=== PATIENT | female | born 1930 | race Caucasian/White ===

== ENCOUNTER 2017-02-06 10:56 | Inpatient (IN) | payer OTHER, MEDICARE ==
[~2017-02-06] VITALS: Ht 147.3 cm; Wt 55.4 kg
[~2017-02-06 10:56] MED LIST: ARANESP60 MCG/0.3 IV; ASPIRIN325 MG PO; CALTRATE 600 +1 EAC1 PO; CALTRATE 600600 MG PO; FEROSUL325 MG PO; FIBER THERAPY0.52 GM PO; GEMFIBROZIL600 MG PO; GLUCOPHAGE500 MG PO; IRON325 MG PO; LISINOPRIL5 MG PO; LITE COAT ASPI325 M1 PO; LOPID600 MG PO; METFORMIN HCL500 MG PO; MOTRIN400 MG PO; PREDNISONE2.5 MG PO; PRILOSEC20 MG PO; VITAMIN D; VITAMIN D2000 INTUN PO; VITAMIN D31000 UNI2 PO
[2017-02-06 11:35] LABS: POINT-OF-CARE METER ID UU14174212
[2017-02-06 11:51] VITALS: BP 156/70
[2017-02-06 18:43] VITALS: BP 145/63
[2017-02-06 23:57] VITALS: BP 126/60
[2017-02-07 07:22] VITALS: BP 123/59
[2017-02-07 07:35] LABS: POINT-OF-CARE METER ID UU14188577
[2017-02-07] MEDS ORDERED: HYDROCODON-ACE1 EAC7 PO (09:04)
[2017-02-07 11:44] LABS: POINT-OF-CARE METER ID UU14188577
[2017-02-07 15:50] VITALS: BP 121/59
[2017-02-07 22:24] LABS: POINT-OF-CARE METER ID UU14188577
[2017-02-08 00:07] VITALS: BP 143/65
[2017-02-08 07:02] LABS: POINT-OF-CARE METER ID UU14188577
[2017-02-08 08:03] VITALS: BP 94/55
== END 2017-02-08 11:36 | disposition home or self-care (01) | DRG 520 ==
LOC: SDC 10:56 → 3EAST 14:07 → 2SOUTH 14:07 → 3EAST 18:18
PROVIDERS: Neurological Surgery
DX: M48.06 Spinal stenosis, lumbar region (principal); M54.16 Radiculopathy, lumbar region; I10 Essential (primary) hypertension; E78.5 Hyperlipidemia, unspecified; E11.9 Type 2 diabetes mellitus without complications; K21.9 Gastro-esophageal reflux disease without esophagitis; M19.90 Unspecified osteoarthritis, unspecified site; Z96.651 Presence of right artificial knee joint; Z86.74 Personal history of sudden cardiac arrest; Z79.82 Long term (current) use of aspirin; Z86.73 Personal history of transient ischemic attack (TIA), and cerebral infarction without residual deficits; Z88.5 Allergy status to narcotic agent; Z88.2 Allergy status to sulfonamides
CPT/HCPCS: 72020; 76000; 82948; J0330; J0690; J1100; J1170; J1815; J2405; J2710; J2765; J3010; J3480; J7050

== ENCOUNTER 2017-02-10 14:52 | Emergency (ER) | payer OTHER, MEDICARE ==
[~2017-02-10] VITALS: Ht 144.8 cm; Wt 55.4 kg
[~2017-02-10 14:52] MED LIST changes: +HYDROCODON-ACE1 EAC7 PO
[2017-02-10 17:06] LABS: ADD MIUA? NO; BILIRUBIN NEGATIVE; BLOOD NEGATIVE; COLOR YELLOW ((YELLOW)); GLUCOSE (STRIP) NEGATIVE; KETONES NEGATIVE; LEUKOCYTES NEGATIVE; NITRITE NEGATIVE; PROTEIN (STRIP) NEGATIVE; SPECIFIC GRAVITY 1.008 (1.000-1.030); UROBILINOGEN 0.2 MG/DL (0.2-1.0)
[2017-02-10] MEDS ORDERED: FLOMAX0.4 MG PO (18:23)
[2017-02-10 18:30] VITALS: BP 130/65
== END 2017-02-10 18:33 | disposition home or self-care (01) ==
LOC: EME 14:52
PROVIDERS: Emergency Medicine
DX: R33.9 Retention of urine, unspecified (principal); K59.00 Constipation, unspecified; Z98.890 Other specified postprocedural states; I10 Essential (primary) hypertension; E11.9 Type 2 diabetes mellitus without complications
CPT/HCPCS: 74020; 81003; 99281; 99284

== ENCOUNTER → 2017-04-17 | Outpatient (CLI) | payer OTHER, MEDICARE ==
[~2017-04-17] MED LIST changes: +FLOMAX0.4 MG PO
== END | disposition home or self-care (01) ==
DX: R26.2 Difficulty in walking, not elsewhere classified (principal); M25.552 Pain in left hip; M25.652 Stiffness of left hip, not elsewhere classified; M62.81 Muscle weakness (generalized)
CPT/HCPCS: 97110 GP; 97150 GO; 97161 GP; 97165 GO; G8978 GP; G8979 GP; G8980 GP; G8987 GO; G8988 GO; G8989 GO

== ENCOUNTER 2017-05-08 08:36 | Inpatient (IN) | payer OTHER, MEDICARE ==
[~2017-05-08] VITALS: Ht 147.3 cm; Wt 68.2 kg
[~2017-05-08 08:36] MED LIST changes: +IRON325 M1 PO
[2017-05-08 09:33] VITALS: BP 161/70
[2017-05-08 09:51] LABS: POINT-OF-CARE METER ID UU14174212
[2017-05-08 09:57] VITALS: BP 161/70
[2017-05-08 14:16] LABS: POINT-OF-CARE METER ID UU13113675
[2017-05-08 14:48] LABS: MCH 32.8 PG (29.0-34.0); MCV 93.6 FL (83-99); MEAN PLAT.VOLUME 9.9 uM^3 (9.5-12.4); PLATELET COUNT 168 K/uL (156-360); RBC DIS.WIDTH-CV 12.5 % (11.8-14.6); WHITE BLOOD COUNT 7.2 K/uL (4.1-10.2)
[2017-05-08 14:59] LABS: RED BLOOD COUNT 2.99 M/uL (3.80-5.20)
[2017-05-08 16:00] VITALS: BP 148/65
[2017-05-08 17:16] LABS: POINT-OF-CARE METER ID UU14149397
[2017-05-08 20:06] VITALS: BP 136/64
[2017-05-09 00:56] VITALS: BP 117/56
[2017-05-09 03:41] VITALS: BP 107/51
[2017-05-09 06:35] LABS: POINT-OF-CARE METER ID UU14188577
[2017-05-09 07:40] LABS: ANION GAP 11 MEQ/L (2-14); CHLORIDE 102 MEQ/L (99-109); GFR ESTIMATE (CALCULATED) > 59 mL/min/; GLUCOSE 103 mg/dL (70-99); POTASSIUM 3.9 MEQ/L (3.7-5.4); SAMPLE HEMOLYSIS CHECK 0; SAMPLE ICTERIC CHECK 0; SAMPLE LIPEMIA CHECK 0; SODIUM 133 MEQ/L (136-147); UREA NITROGEN (BUN) 19 mg/dL (9-23)
[2017-05-09 08:21] VITALS: BP 152/63
[2017-05-09 11:54] VITALS: BP 120/60
[2017-05-09 14:06] LABS: HEMATOCRIT 27.3 % (36.0-46.0); MCV 91.9 FL (83-99)
[2017-05-09 15:46] VITALS: BP 134/65
[2017-05-09 17:13] LABS: POINT-OF-CARE METER ID UU14149397
[2017-05-09 18:59] LABS: ADD MIUA? YES; BILIRUBIN NEGATIVE; BLOOD SMALL; COLOR YELLOW ((YELLOW)); GLUCOSE (STRIP) NEGATIVE; KETONES NEGATIVE; LEUKOCYTES NEGATIVE; NITRITE NEGATIVE; PROTEIN (STRIP) NEGATIVE; SPECIFIC GRAVITY 1.012 (1.000-1.030); UROBILINOGEN 0.2 MG/DL (0.2-1.0)
[2017-05-09 19:29] LABS: BACTERIA RARE /HPF; EPITHELIAL CELLS NONE SEEN /HPF; MUCUS NONE SEEN /LPF; UCUL ADDED? NO; WHITE BLOOD CELLS 0-5 /HPF (0-5)
[2017-05-09 21:47] LABS: POINT-OF-CARE METER ID UU14149397
[2017-05-10 00:24] VITALS: BP 142/62
[2017-05-10 06:15] LABS: HEMATOCRIT 28.5 % (36.0-46.0); MCV 90.2 FL (83-99)
[2017-05-10 06:41] LABS: ANION GAP 8 MEQ/L (2-14); CHLORIDE 98 MEQ/L (99-109); GFR ESTIMATE (CALCULATED) > 59 mL/min/; GLUCOSE 97 mg/dL (70-99); POTASSIUM 3.5 MEQ/L (3.7-5.4); SAMPLE HEMOLYSIS CHECK 0; SAMPLE ICTERIC CHECK 0; SAMPLE LIPEMIA CHECK 0; SODIUM 133 MEQ/L (136-147); UREA NITROGEN (BUN) 15 mg/dL (9-23)
[2017-05-10 07:21] LABS: POINT-OF-CARE METER ID UU14149397
[2017-05-10 07:41] VITALS: BP 145/77
[2017-05-10 10:38] LABS: POINT-OF-CARE METER ID UU14149397
[2017-05-10 11:06] LABS: HDL CHOLESTEROL 65 MG/DL (Desirable>=50); LDL CHOLESTEROL 103 mg/dL (Desirable<100); NON-HDL CHOLESTEROL 119 mg/dL (Desirable<160); TOTAL CHOLESTEROL 184 mg/dL (Desirable<200); TRIGLYCERIDES 79 MG/DL (Normal: <150)
[2017-05-10 11:30] VITALS: BP 149/81
[2017-05-10 12:09] LABS: POINT-OF-CARE METER ID UU14149397
[2017-05-10 14:24] LABS: Estimated Average Glucose 126 mg/dL (70-123)
[2017-05-10 14:27] VITALS: BP 98/60
[2017-05-10 16:55] LABS: POINT-OF-CARE METER ID UU13113717
[2017-05-10 19:43] VITALS: BP 107/53
[2017-05-10 23:40] VITALS: BP 110/56
[2017-05-11 03:33] VITALS: BP 106/54
[2017-05-11 06:39] LABS: HEMATOCRIT 26.7 % (36.0-46.0); MCH 31.4 PG (29.0-34.0); MCHC 33.3 G/DL (30.0-36.0); MEAN PLAT.VOLUME 11.2 uM^3 (9.5-12.4); PLATELET COUNT 172 K/uL (156-360); RBC DIS.WIDTH-CV 12.3 % (11.8-14.6); RBC DIS.WIDTH-SD 42.7 % (39-53); RED BLOOD COUNT 2.83 M/uL (3.80-5.20); WHITE BLOOD COUNT 7.2 K/uL (4.1-10.2)
[2017-05-11 06:40] LABS: MCV 94.3 FL (83-99)
[2017-05-11 06:44] LABS: ANION GAP 6 MEQ/L (2-14); CHLORIDE 100 MEQ/L (99-109); GFR ESTIMATE (CALCULATED) > 59 mL/min/; GLUCOSE 107 mg/dL (70-99); SAMPLE HEMOLYSIS CHECK 0; SAMPLE ICTERIC CHECK 0; SAMPLE LIPEMIA CHECK 0; SODIUM 129 MEQ/L (136-147); UREA NITROGEN (BUN) 15 mg/dL (9-23)
[2017-05-11 06:46] LABS: POTASSIUM 4.3 MEQ/L (3.7-5.4)
[2017-05-11 07:24] VITALS: BP 145/65
[2017-05-11] MEDS ORDERED: ASPIR-LOW81 MG PO (08:53)
[2017-05-11] MEDS ORDERED: LOVENOX30 MG/0.3 SC (08:54)
[2017-05-11] MEDS ORDERED: DOCUSATE SODIU100 MG PO (08:54)
[2017-05-11 11:24] VITALS: BP 105/52
[2017-05-11] MEDS ORDERED: ATORVASTATIN CA40 MG PO (14:25)
== END 2017-05-11 15:09 | DRG 470 ==
LOC: 3EAST 08:36 → 2SOUTH 08:36 → SDC 13:14 → EDSTATUS 13:15 → 2SOUTH 13:16 → 3EAST 15:47 → 5SOUTH 05-10 13:47
PROVIDERS: Internal Medicine; Orthopaedic Surgery; Physician Assistant
PROC: 0SRB02A Replacement of Left Hip Joint with Metal on Polyethylene Synthetic Substitute, Uncemented, Open Approach (ICD-10-PCS; principal; 2017-05-08)
DX: M16.12 Unilateral primary osteoarthritis, left hip (principal); E87.1 Hypo-osmolality and hyponatremia; E11.43 Type 2 diabetes mellitus with diabetic autonomic (poly)neuropathy; K31.84 Gastroparesis; E78.00 Pure hypercholesterolemia, unspecified; E78.5 Hyperlipidemia, unspecified; I11.0 Hypertensive heart disease with heart failure; I50.9 Heart failure, unspecified; I25.10 Atherosclerotic heart disease of native coronary artery without angina pectoris; R41.0 Disorientation, unspecified; R53.1 Weakness; K21.9 Gastro-esophageal reflux disease without esophagitis; Z79.84 Long term (current) use of oral hypoglycemic drugs; Z79.82 Long term (current) use of aspirin; Z79.899 Other long term (current) drug therapy; Z86.73 Personal history of transient ischemic attack (TIA), and cerebral infarction without residual deficits; Z86.74 Personal history of sudden cardiac arrest; Z96.652 Presence of left artificial knee joint; Z88.2 Allergy status to sulfonamides; Z88.5 Allergy status to narcotic agent; Z80.42 Family history of malignant neoplasm of prostate; Z82.49 Family history of ischemic heart disease and other diseases of the circulatory system
CPT/HCPCS: 70450; 71010; 73502; 80048; 80061; 81003; 82948; 83036; 85014; 85018; 85027; 92610 GN; 93005; 93306; 93880; J0131; J0690; J1650; J1815; J2250; J2405; J3010; J7030; J7050

== ENCOUNTER 2017-05-21 18:04 | Emergency (ER) | payer OTHER, MEDICARE ==
[~2017-05-21] VITALS: Ht 147.3 cm; Wt 60.3 kg
[~2017-05-21 18:04] MED LIST changes: +ASPIR-LOW81 MG PO; +ATORVASTATIN CA40 MG PO; +DOCUSATE SODIU100 MG PO; +LOVENOX30 MG/0.3 SC
[2017-05-21 23:24] VITALS: BP 117/51
== END 2017-05-22 00:38 ==
LOC: EME 18:04
DX: M96.840 Postprocedural hematoma of a musculoskeletal structure following a musculoskeletal system procedure (principal); E78.5 Hyperlipidemia, unspecified; K21.9 Gastro-esophageal reflux disease without esophagitis; Z96.642 Presence of left artificial hip joint
CPT/HCPCS: 72192; 73502; 93971; 99281; 99285

== ENCOUNTER 2017-10-09 10:57 | Emergency (ER) | payer OTHER, MEDICARE ==
[~2017-10-09] VITALS: Ht 147.3 cm; Wt 58.3 kg
[2017-10-09] MEDS ORDERED: OSTEO BI-FLEX1 EAC4 PO (11:15)
[2017-10-09] MEDS ORDERED: ECOTRIN325 MG PO (11:15)
[2017-10-09] MEDS ORDERED: BENADRYL25 MG PO (11:16)
[2017-10-09] MEDS ORDERED: AZO CRANBERRY1 EACH PO (11:18)
[2017-10-09 12:26] LABS: ADD MIUA? YES; BILIRUBIN NEGATIVE; BLOOD NEGATIVE; COLOR YELLOW ((YELLOW)); GLUCOSE (STRIP) NEGATIVE; KETONES NEGATIVE; LEUKOCYTES NEGATIVE; NITRITE NEGATIVE; PROTEIN (STRIP) NEGATIVE; SPECIFIC GRAVITY 1.021 (1.000-1.030); UROBILINOGEN 0.2 MG/DL (0.2-1.0)
[2017-10-09 12:34] LABS: BACTERIA RARE /HPF; EPITHELIAL CELLS RARE /HPF; MUCUS TRACE /LPF; RED BLOOD CELLS 0-5 /HPF (0-5); UCUL ADDED? NO; WHITE BLOOD CELLS 0-5 /HPF (0-5)
[2017-10-09 13:20] VITALS: BP 157/60
== END 2017-10-09 13:21 | disposition home or self-care (01) ==
LOC: EME 10:57
PROVIDERS: Nurse Practitioner Family
DX: M16.11 Unilateral primary osteoarthritis, right hip (principal); E78.5 Hyperlipidemia, unspecified; E11.9 Type 2 diabetes mellitus without complications; I10 Essential (primary) hypertension; Z96.642 Presence of left artificial hip joint; Z79.84 Long term (current) use of oral hypoglycemic drugs; K21.9 Gastro-esophageal reflux disease without esophagitis; Z86.73 Personal history of transient ischemic attack (TIA), and cerebral infarction without residual deficits; Z86.74 Personal history of sudden cardiac arrest; Z88.5 Allergy status to narcotic agent; Z88.2 Allergy status to sulfonamides; Z88.6 Allergy status to analgesic agent
CPT/HCPCS: 73502; 81003; 99281; 99284

== ENCOUNTER 2018-05-21 19:25 | Observation (INO) | payer OTHER, MEDICARE ==
[~2018-05-21] VITALS: Ht 147.3 cm; Wt 69.0 kg
[~2018-05-21 19:25] MED LIST changes: +AZO CRANBERRY1 EACH PO; +BENADRYL25 MG PO; +LO-DOSE ASPIRIN81 M1 PO; +OSTEO BI-FLEX1 EAC4 PO
[2018-05-21 19:53] LABS: BASOPHIL (%) 0.6 % (0-1); EOSINOPHIL (%) 4.5 % (0-5); EOSINOPHIL COUNT 0.3 K/uL (0-0.3); HEMATOCRIT 31.1 % (36.0-46.0); HEMOGLOBIN 10.9 G/DL (11.9-15.5); IMMATURE GRANULOCYTE (%) 0.2 % (0.0-0.7); LYMPHOCYTE (%) 36.4 % (15-42); LYMPHOCYTE COUNT 2.2 K/uL (1.0-2.8); MCH 31.4 PG (29.0-34.0); MCV 89.6 FL (83-99); MONOCYTE (%) 7.3 % (3-12); MONOCYTE COUNT 0.5 K/uL (0-0.8); NEUTROPHIL COUNT 3.1 K/uL (1.8-6.4); PLATELET COUNT 193 K/uL (156-360); RBC DIS.WIDTH-CV 12.5 % (11.8-14.6); RBC DIS.WIDTH-SD 40.8 % (39-53); RED BLOOD COUNT 3.47 M/uL (3.80-5.20); WHITE BLOOD COUNT 6.2 K/uL (4.1-10.2)
[2018-05-21 20:04] LABS: AMYLASE 57 IU/L (1-118); CHLORIDE 108 mEq/L (99-109); POTASSIUM 4.3 mEq/L (3.7-5.4); PTT 28.6 SEC (25-37); SODIUM 135 mEq/L (136-147)
[2018-05-21 20:06] LABS: GLUCOSE 142 mg/dL (70-99)
[2018-05-21 20:09] LABS: SERUM ETHYL ALCOHOL < 10 mg/dL
[2018-05-21 20:10] LABS: CREATININE 1.2 mg/dL (0.6-1.3); GFR ESTIMATE (CALCULATED) 45 mL/min/
[2018-05-21 20:11] LABS: UREA NITROGEN (BUN) 35 mg/dL (9-23)
[2018-05-21 20:13] LABS: LIPASE 31 U/L (1.0-51.0)
[2018-05-21 20:20] LABS: TROP-I INTERPRETATION NEGATIVE; TROPONIN-I 0.01 ng/mL (0.0-0.30)
[2018-05-21] MEDS ORDERED: FIBER0.4 GM PO (21:01)
[2018-05-21] MEDS ORDERED: DITROPAN5 MG PO (21:03)
[2018-05-21 21:12] LABS: APPEARANCE CLEAR ((CLEAR)); BILIRUBIN NEGATIVE; BLOOD NEGATIVE; COLOR STRAW ((YELLOW)); GLUCOSE (STRIP) NEGATIVE; KETONES NEGATIVE; LEUKOCYTES SMALL; NITRITE NEGATIVE; PROTEIN (STRIP) NEGATIVE; UROBILINOGEN 0.2 MG/DL (0.2-1.0)
[2018-05-21 21:19] LABS: BACTERIA RARE /HPF; EPITHELIAL CELLS RARE /HPF; HYALINE CASTS 0-5 /LPF; MUCUS NONE SEEN /LPF; RED BLOOD CELLS 0-5 /HPF (0-5); UCUL ADDED? NO; WHITE BLOOD CELLS 0-5 /HPF (0-5)
[2018-05-21 21:23] LABS: AMPHETAMINE NEGATIVE (500 ng/mL); BARBITURATES NEGATIVE (200 ng/mL); BENZODIAZEPINES NEGATIVE (150 ng/mL); COCAINE NEGATIVE (150 ng/mL); METHADONE NEGATIVE (200 ng/mL); METHAMPHETAMINE NEGATIVE (500 ng/mL); OPIATES (MORPHINE) NEGATIVE (100 ng/mL); OXYCODONE NEGATIVE (100 ng/mL); PHENCYCLIDINE NEGATIVE (25 ng/mL); PROPOXYPHENE NEGATIVE (300 ng/mL); THC CANNABINOIDS NEGATIVE (50 ng/mL); TRICYCLIC ANTIDEPRESSANTS NEGATIVE (300 ng/mL)
[2018-05-21 21:24] LABS: BUPRENORPHINE NEGATIVE (10 ng/mL)
[2018-05-21 23:00] LABS: HDL CHOLESTEROL 60 MG/DL (Desirable>=50); LDL CHOLESTEROL 163 mg/dL (Desirable<100); NON-HDL CHOLESTEROL 186 mg/dL (Desirable<160); TOTAL CHOLESTEROL 246 mg/dL (Desirable<200); TRIGLYCERIDES 116 MG/DL (Normal: <150)
[2018-05-21 23:21] VITALS: BP 163/69
[2018-05-22 04:19] VITALS: BP 113/53
[2018-05-22 09:00] VITALS: BP 158/69
[2018-05-22 09:34] LABS: HEMOGLOBIN A1c (GLYCOHEMOGLOB) 5.8 % (Below 5.7)
[2018-05-22 12:00] VITALS: BP 162/68
[2018-05-22] MEDS ORDERED: ASPIRIN EC325 MG PO (15:22)
[2018-05-22] MEDS ORDERED: PRAVASTATIN SOD40 MG PO ×2 (15:26→15:28)
[2018-05-22 16:00] VITALS: BP 111/57; BP 117/59
== END 2018-05-22 17:47 | disposition home or self-care (01) ==
LOC: EME 19:25 → EDOF 21:40 → ENRESERV 21:42 → 4SOUTH 23:03
PROVIDERS: Emergency Medicine; Hospitalist; Physician Assistant
DX: G45.9 Transient cerebral ischemic attack, unspecified (principal); I65.22 Occlusion and stenosis of left carotid artery; E11.9 Type 2 diabetes mellitus without complications; I10 Essential (primary) hypertension; K21.9 Gastro-esophageal reflux disease without esophagitis; Z86.73 Personal history of transient ischemic attack (TIA), and cerebral infarction without residual deficits; Z96.642 Presence of left artificial hip joint; Z79.82 Long term (current) use of aspirin; Z88.5 Allergy status to narcotic agent; Z88.2 Allergy status to sulfonamides; Z88.8 Allergy status to other drugs, medicaments and biological substances; Z79.84 Long term (current) use of oral hypoglycemic drugs
CPT/HCPCS: 70450; 70551; 71046; 80048; 80061; 81003; 82150; 82948; 83036; 83690; 84484; 85025; 85027; 85610; 85730; 86850; 86900; 86901; 93005; 93880; 99281; 99285; G0378; G0480; J1644